=== PATIENT | female | born 1995 | race African-American/Black ===

== ENCOUNTER → 2017-01-31 | Outpatient (CLI) | payer OTHER, MEDICAID ==
[2015-09-13 15:01] VITALS: BP 133/88
--- NOTE | 2017-01-31 09:05 | US ---
Examination: Abdominal ultrasound. Clinical History: Bloating, nausea. Technique: Real-time grayscale ultrasound was used to evaluate the upper abdomen. Comparison: None available. Findings: The gallbladder is suboptimally distended with no definite cholelithiasis, gallbladder wall thickenin g or pericholecystic fluid noted. The common bile duct measures 3 mm in diameter and is within normal limits. No intrahepatic biliary d uctal dilatation is noted. The liver is normal in echogenicity with no focal mass. The pancreas is unremarkable. The right kidney measures 8.3 cm in length and is normal in echogenicity with no focal mass, hydronep hrosis or nephrolithiasis noted. Impression: 1. Negative right upper quadrant abdominal ultrasound. Reported By:
--- NOTE | 2017-02-01 08:16 | US ---
History: Pelvic pain and cramping Study: Transabdominal ultrasound of the pelvis Comparison: April 2013 Findings: The uterus measures 6.76 x 3.4 x 4.52 cm without mass. The endometrium measures up to 2.3 c m maximum diameter. There is a small amount of free fluid in the cul-de-sac. The right ovary measures 3.44 x 1.85 x 2.22 cm and the left ovary measures 3.14 x 1.54 x 2.63 cm. There is no ovarian mass. Impression: Small amount of free fluid in the cul-de-sac that is likely physiologic. Otherwise unrema rkable. Reported By:
== END ==
LOC: RAD 07:55
PROVIDERS: ATTEND Nurse Practitioner Family
DX: R10.84 Generalized abdominal pain (principal); R14.0 Abdominal distension (gaseous)
CPT/HCPCS: 76705; 76856

== ENCOUNTER → 2017-03-07 | Outpatient (CLI) | payer OTHER, MEDICAID ==
[2015-09-13 15:01] VITALS: BP 133/88
--- NOTE | 2017-03-07 11:34 | NM ---
HEPATOBILIARY SCAN HISTORY: 21-year-old female with postprandial bloating with right upper quadrant lower quadrant pain with nausea. History of cerebral palsy. RADIOPHARMACEUTICAL: 5.4 mCi Tc-99m Choletec IV. TECHNIQUE: The following images were sequentially acquired: Dynamic functional images of the liver and upper abdomen were obtained for 60 minutes; 8 oz of Ensure was given orally and dynamic functional images of the liver and upper abdomen were obt ained for 29 minutes. COMPARISON: None. OTHER STUDIES USED FOR CORRELATION: Ultrasound of the gallbladder 01/31/2017. FINDINGS: Hepatic uptake: Good, prompt. Hepatobiliary transit: Normal. Biliary to bowel transit: Normal. Gallbladder: Visualized normally. Abnormal activity outside hepatobiliary system and bowel: None. Status post Ensure: Gallbladder contraction: Poor. CBD to bowel transit: Within normal limits. QUANTITATIVE ANALYSIS Gallbladder ejection fraction, measured from 0 to 29 minutes, is calculated to be 25%, which is below normal limits. Normal ejection fraction is over 35%. IMPRESSION: No evidence of acute cholecystitis. Decreased gallbladder ejection fraction: 25 %, compatible with chronic cholecystitis/biliary dyskines ia. Reported By:
== END ==
LOC: RAD 08:47
PROVIDERS: ATTEND Psychiatry & Neurology Neurology
DX: R14.0 Abdominal distension (gaseous) (principal)
CPT/HCPCS: 78227; A9537

== ENCOUNTER 2017-04-04 07:47 | Day surgery (SDC) | payer OTHER, MEDICAID ==
[~2017-04-04 07:47] MED LIST: ANCEF VIAL 1 GM ONE; D5 LR 1000 ML 1,000 ML IV ONE; MARCAINE 0.25% INJ ONE; XYLOCAINE 1% and EPINEPHRINE 1:100,000 ONE
[2017-04-04 08:21] LABS: BASOPHILS % (AUTO) 0.5 % (0.2-1.0); EOSINOPHILS # (AUTO) 0.1 x10^3/uL (0.0-0.2); EOSINOPHILS % (AUTO) 1.4 % (0.9-2.9); HEMATOCRIT 41.8 % (36.0-47.0); HEMOGLOBIN 14.4 g/dL (12.0-16.0); LYMPHOCYTES # (AUTO) 2.3 X10^3/uL (1.3-2.9); LYMPHOCYTES % (AUTO) 25.2 % (21.0-51.0); MEAN CORPUSCULAR HEMOGLOBIN 31.8 pg (27.0-34.0); MEAN CORPUSCULAR HGB CONC 34.4 g/dL (33.0-35.0); MEAN CORPUSCULAR VOLUME 92.6 fL (80.0-100.0); MEAN PLATELET VOLUME 8.3 fL (7.4-11.0); MONOCYTES # (AUTO) 0.9 x10^3/uL (0.3-0.8); MONOCYTES % (AUTO) 9.6 % (0.0-13.0); NEUTROPHILS # (AUTO) 5.7 x10^3/uL (2.2-4.8); NEUTROPHILS % (AUTO) 63.3 % (42.0-75.0); PLATELET COUNT 250 X10^3/uL (150.0-450.0); RED BLOOD COUNT 4.52 X10^6/uL (3.5-5.4); RED CELL DISTRIBUTION WIDTH 12.8 % (11.6-16.5)
[2017-04-04 08:38] LABS: SERUM PREGNANCY TEST, QUAL NEGATIVE <10 mIU/mL
[2017-04-04 08:50] LABS: ALANINE AMINOTRANSFERASE 18 Units/L (12-78); ALBUMIN 4.1 g/dL (3.4-5.0); ALKALINE PHOSPHATASE 80 Units/L (46-116); ASPARTATE AMINO TRANSFERASE 14 Units/L (15-37); BLOOD UREA NITROGEN 11 mg/dL (7-18); CALCIUM 8.8 mg/dL (8.5-10.1); CARBON DIOXIDE 26.4 mmol/L (21-32); CHLORIDE 103 mmol/L (98-107); CREATININE 0.94 mg/dL (0.55-1.02); SODIUM 138 mmol/L (136-145); TOTAL PROTEIN 8.5 g/dL (6.4-8.2); eGFR BLACK RACES > 60 (>60); eGFR NON BLACK RACES > 60 (>60)
[2017-04-04] MEDS ORDERED: FENTANYL INJ 250 mcg ONE (10:21)
[2017-04-04] MEDS ORDERED: REGLAN INJ 10 MG VIAL IVP PRN (12:13)
[2017-04-04] MEDS ORDERED: BENADRYL INJ 50 MG VIAL IVP PRN (12:13)
[2017-04-04] MEDS ORDERED: PHENERGAN INJ 25 MG IVP PRN (12:13)
[2017-04-04] MEDS ORDERED: ZOFRAN INJ 4 MG VIAL IVP PRN ×2 (12:13→12:16)
[2017-04-04] MEDS ORDERED: PERCOCET TAB 5/325 MG PO PRN (12:16)
--- NOTE | 2017-04-04 12:16 | OR.GENERIC ---
Post-Op Note Generic - Post-Op Note Operative Report: Operative Report Date of Operation: April 04, 2017 Pre-Operative Diagnosis: Biliary dyskinesia. Post-Operative Diagnosis: Biliary dyskinesia. Procedure: Laparoscopic cholecystectomy. Surgeon: Luke Sher MD. Electrical Unit Rebuilder: Yani Ayers CRNA. Specimen: Gallbladder. Estimated blood loss: Minimal. Complications: None. Summary: The patient is a 21 year old female who presented with biliary dyskinesia. The patient was offered cholecystectomy. The risk and benefits of the procedure including difficulty with anesthesia, bleeding, infection, conversion to open procedure, bile leak, hernia formation, DVT, as well as PE were discussed with the patient. The patient understood these risks and requested the procedure. On April 04, 2017, the patient was brought to the operative theatre. A time out was performed verifying the patient and procedure. The patient received Ancef for pre-operative antibiosis. After satisfactory induction of general endotracheal anesthesia, the abdomen was prepped with Chloraprep and draped in the usual sterile fashion. The skin and subcutaneous tissue at the umbilicus was anesthetized using local anesthetic. The skin was incised sharply. A 12 mm trocar was placed though the incision and into the peritoneal cavity using the Fabian technique. Carbon dioxide was infiltrated through this trocar to obtain a pneumoperitoneum of 15 mm Hg. A camera was placed through this trocar and swept in all directions. No injury was seen from entering the peritoneal cavity. The [employer] shunt was noted in the right upper quadrant. Adhesions were noted though out the abdomen. A site was selected in the subxiphoid location for our 2nd trocar. The skin and fascia was anesthetized using local anesthetic. The skin was incised sharply. A 5 mm trocar was placed into the peritoneal cavity under direct visualization. In a similar manner, two additional 5 mm trocars were placed. The first was placed in the mid- clavicular line approximately 2 fingerbreadths inferior to the left costal margin and a second in the anterior axillary line approximately 2 fingerbreadths inferior to the left costal margin. The patient was placed in reverse Trendelenburg and rotated to the patients left. The gallbladder was grasped at the fundus and elevated cephalad and slightly lateral. Omental attachments were taken down using blunt dissection and electrocautery. The peritoneum on the medial and lateral aspects of the infundibulum of the gallbladder was scored using hook electrocautery. Using blunt dissection, the cystic artery and duct were isolated. The critical view of safety was obtained. Both of these structures were divided between endoclips. The gallbladder was dissected free using hook electrocautery. The gallbladder was placed in an endobag and removed through the umbilical trocar site without difficulty. The trocar and camera were placed back inside the abdomen. Our clips were noted in good position. Bleeding of the gallbladder fossa was controlled using electrocautery. At this point, the 5 mm trocars were removed under direct visualization. No bleeding was seen. The umbilical trocar was then removed and pneumoperitoneum released. The fascia at the umbilicus was closed using a 0-Vicryl placed in a [id number] configuration. The skin edges at all incisions were re-approximated using inverted, interrupted 4-0 Monocryl sutures. Mastisol and Steri-strips were placed. Sterile dressings were placed. The patient was awakened and taken to the recovery room in stable condition. There were no complications. All counts were correct.
[2017-04-04] MEDS: DILAUDID INJ IVP PRN ×2 (12:19→12:26)
[2017-04-04 13:43] VITALS: BP 119/81
[2017-04-04] MEDS ORDERED: ROBINUL ONE (15:41)
[2017-04-04] MEDS ORDERED: VERSED ONE (15:41)
[2017-04-04] MEDS ORDERED: TORADOL 30 MG VIAL ONE (15:41)
[2017-04-04] MEDS ORDERED: QUELICIN (OR ANECTINE) ONE (15:41)
[2017-04-04] MEDS ORDERED: ZOFRAN INJ 4 MG VIAL ONE (15:41)
[2017-04-04] MEDS ORDERED: DIPRIVAN VIAL ONE (15:41)
[2017-04-04] MEDS ORDERED: SUPRANE IN ONE (15:41)
[2017-04-04] MEDS ORDERED: NORCURON INJ 10 MG VIAL ONE (15:41)
[2017-04-04] MEDS ORDERED: XYLOCAINE 2 % (PLAIN) ONE (15:41)
== END 2017-04-04 13:43 | disposition home or self-care (01) | DRG 446 ==
LOC: SURG1 07:47
PROVIDERS: ATTEND Student in an Organized Health Care Education/Training Program
PROC: 0FT44ZZ Resection of Gallbladder, Percutaneous Endoscopic Approach (ICD-10-PCS; principal; 2017-04-04 11:00)
DX: K82.8 Other specified diseases of gallbladder (principal); K81.9 Cholecystitis, unspecified
CPT/HCPCS: 36415; 80053; 84703; 85025; A4216; S0020; J0330; J0690; J1170; J1885; J2001; J2250; J2405; J2550; J3010; J3490; J7120